=== PATIENT | female | born 2000 | race Caucasian/White ===

== ENCOUNTER 2023-02-07 00:03 | Emergency (ER) | payer BC ==
[2023-02-07 00:10] VITALS: BP 110/73; PULSE 95; RESP 18; TEMP 97.5; BMI 23.1
== END 2023-02-07 02:27 | disposition home or self-care (01) ==
LOC: JER 00:03
DX: N93.9 Abnormal uterine and vaginal bleeding, unspecified (principal); S31.41XA Laceration without foreign body of vagina and vulva, initial encounter; X58.XXXA Exposure to other specified factors, initial encounter
CPT/HCPCS: 99282-25